=== PATIENT | male | born 1990 | race African-American/Black ===

== ENCOUNTER 2016-08-09 10:23 | Outpatient (RCR) | payer MEDICAID | END 2016-08-30 | disposition home or self-care (01) | LOC: M OUTALCOH 10:23 | PROVIDERS: ATTEND Psychiatry & Neurology Psychiatry | DX: F10.10 Alcohol abuse, uncomplicated (principal); F12.20 Cannabis dependence, uncomplicated ==

== ENCOUNTER 2017-08-14 08:55 | Emergency (ER) | payer OTHER, MEDICAID ==
[2017-08-14] MEDS: KETOROLAC 30 MG/ML VIAL (J1885) IM (10:37)
== END 2017-08-14 11:56 | disposition home or self-care (01) ==
LOC: M ED 08:55
DX: Z04.1 Encounter for examination and observation following transport accident (principal); S33.5XXA Sprain of ligaments of lumbar spine, initial encounter; S16.1XXA Strain of muscle, fascia and tendon at neck level, initial encounter; V43.52XA Car driver injured in collision with other type car in traffic accident, initial encounter; Y92.410 Unspecified street and highway as the place of occurrence of the external cause; J45.909 Unspecified asthma, uncomplicated; Z98.890 Other specified postprocedural states
CPT/HCPCS: J1885

== ENCOUNTER → 2018-12-17 | Outpatient (CLI) | payer OTHER ==
[~2018-12-17] MED LIST: ALB2.5NEB INH; CYCL5TAB PO
--- NOTE | 2018-12-17 11:00 | REP ---
MR LUMBAR SPINE WITHOUT CONTRAST: HISTORY: Radiculopathy. There is no disc bulge or herniation at the L1-2 through L3-4 levels. The nerves exit the neural foramina without compression. A diffuse disc bulge is present at the L4-5 level. This abuts the thecal sac. The L4 nerves exit the neural foramina without compression. A diffuse disc bulge and small central disc protrusion are present at the L5-S1 level. There is minimal compression of the thecal sac. The L5 nerves exit the neural foramina without compression. The conus medullaris is normal in appearance terminating at the level of the L1-2 intervertebral disc. Normal signal intensity is present in the lumbar intervertebral discs and vertebral bodies. IMPRESSION: 1. Diffuse disc bulge at the L4-5 level. This abuts the thecal sac. 2. Diffuse disc bulge and small central disc protrusion at the L5-S1 level with minimal thecal sac compression. Electronically Signed by Bradly Andujar MD 12/17/2018 11:03 A
--- NOTE | 2018-12-17 12:04 | REP ---
MR CERVICAL SPINE WITHOUT CONTRAST: HISTORY: Neck pain. There is no disc bulge or herniation. The spinal canal and the neural foramina are patent. The spinal cord is normal in signal intensity. Normal signal intensity is present in the cervical vertebral bodies. IMPRESSION: There is no disc bulge or herniation. Electronically Signed by Bradly Andujar MD 12/17/2018 12:05 P
--- NOTE | 2018-12-17 12:10 | REP ---
MR THORACIC SPINE WITHOUT CONTRAST: HISTORY: Back pain. A small central disc protrusion is present at the T2-3 level. There is minimal effacement of the thecal sac without spinal cord compression. The T2 neural foramina are patent. A small central disc protrusion is present at the T3-4 level. There is minimal effacement of the thecal sac without spinal cord compression. The T2 neural foramina are patent. A small right paracentral disc protrusion is present at the T4-5 level. There is minimal effacement of the thecal sac without spinal cord compression. The T4 neural foramina are patent. A small central disc protrusion is present at the T5-6 level. There is minimal effacement of the thecal sac without spinal cord compression. The T5 neural foramina are patent. A small right paracentral disc protrusion is present at the T8-9 level. There is minimal effacement of the thecal sac without spinal cord compression. The T8 neural foramina are patent. There is no other disc bulge or herniation. The remaining neural foramina are patent. The spinal cord is normal in signal intensity. Normal signal intensity is present in the thoracic vertebral bodies. IMPRESSION: Small disc protrusions at the T2-3 through T5-6 and T8-9 levels without spinal cord compression. Electronically Signed by Bradly Andujar MD 12/17/2018 12:16 P
== END ==
LOC: M RAD 08:52
PROVIDERS: ATTEND Family Medicine
DX: M54.2 Cervicalgia (principal); M51.26 Other intervertebral disc displacement, lumbar region; M51.27 Other intervertebral disc displacement, lumbosacral region; M51.24 Other intervertebral disc displacement, thoracic region

== ENCOUNTER → 2018-12-19 | Outpatient (CLI) | payer OTHER ==
--- NOTE | 2018-12-19 16:44 | REP ---
MRI RIGHT SHOULDER: TECHNIQUE: Axial T2 fat sat, gradient echo, sagittal oblique T2 fat sat, coronal oblique T1, T2 fat sat. The supraspinatus tendon demonstrates no significant abnormal signal. There is no rotator cuff tendon tear. I do not see a significant hypertrophic change at the acromioclavicular joint. The acromion is downward sloping and type 2. The biceps tendon is within the bicipital groove with no tenosynovitis. There is no Hill Sach's deformity. The deltoid muscle demonstrates no abnormal signal. The biceps labral complex appears intact. Mild ill defined high signal is seen throughout the superior labrum. In the anterior inferior aspect of the glenohumeral joint there appears to be linear soft tissue in the joint which may represent a labral flap from a labral tear. Posterior and inferior labrum appear grossly intact. Tiny subchondral cyst is seen in the superolateral humeral head. There is no bone marrow edema or occult fracture. There is a normal amount of joint fluid. No paralabral cyst is seen. IMPRESSION: No rotator cuff tear. Downward sloping of the acromion which is type 2, possibly causing impingement on the rotator cuff tendons. Subtle ill-defined high signal involving the superior labrum which appears somewhat truncated. This may represent fraying or a tear. There is linear soft tissue in the anterior inferior glenohumeral joint which may represent a labral flap from a labral tear. Recommend MR arthrography to further evaluate. Electronically Signed by Patrick Ly MD 12/20/2018 12:35 P
== END ==
LOC: M RAD 10:04
PROVIDERS: ATTEND Orthopaedic Surgery Sports Medicine
DX: M25.511 Pain in right shoulder (principal)

== ENCOUNTER 2019-01-19 00:30 | Inpatient (IN) | payer OTHER ==
[2019-01-19] VITALS (7 sets, daily range): BP systolic 123–132; BP diastolic 68–93
[~2019-01-19] VITALS: Ht 182.9 cm; Wt 107.3 kg
[2019-01-19] MEDS ORDERED: MORPHINE 4 MG/ML 1ML VIAL/SYRINGE (J2270) IV ONE ×2 (01:00→01:15)
[2019-01-19] MEDS ORDERED: TETANUS/DIPHTHERIA TOX ADSORB ADULT 0.5ML SYR/VIAL (90714) IM ONE (01:00)
[2019-01-19] MEDS ORDERED: ceFAZolin SOD 1 GM in D5W MINI-BAG PLUS 50 ML IV ONE ×2 (01:00→07:00)
[2019-01-19] MEDS ORDERED: NS 1,000 ML IV ONE (01:00)
[2019-01-19] MEDS ORDERED: ISOVUE-370 76% 100ML VIAL (Q9967) As Ordered ONE (01:05)
[2019-01-19 01:09] LABS: HEMATOCRIT 40.8 % (42.0-52.0); HEMOGLOBIN 12.7 g/dl (13.5-17.5); MEAN CORPUSCULAR HEMOGLOBIN 23.7 pg (27.0-33.0); MEAN CORPUSCULAR HGB CONC 31.1 g/dl (32.0-36.5); MEAN CORPUSCULAR VOLUME 76.1 fl (80.0-96.0); PLATELET COUNT, AUTOMATED 345 10^3/uL (150-450); RED BLOOD COUNT 5.36 10^6/uL (4.30-6.10); WHITE BLOOD COUNT 13.5 10^3/uL (4.0-10.0)
[2019-01-19 01:35] LABS: GLUCOSE, FASTING 117 MG/DL (70-100)
[2019-01-19 01:36] LABS: BLOOD UREA NITROGEN 13 MG/DL (7-18); CALCIUM LEVEL 8.9 MG/DL (8.5-10.1); CARBON DIOXIDE LEVEL 24 MEQ/L (21-32); CHLORIDE LEVEL 106 MEQ/L (98-107); CREATININE FOR GFR 1.42 MG/DL (0.70-1.30); GLOMERULAR FILTRATION RATE > 60.0 (>60); POTASSIUM SERUM 4.4 MEQ/L (3.5-5.1); SODIUM LEVEL 140 MEQ/L (136-145)
[2019-01-19 01:40] LABS: INR 1.18; PARTIAL THROMBOPLASTIN TIME 26.2 SECONDS (25.0-38.4); PROTHROMBIN TIME 14.7 SECONDS (11.8-14.0)
[2019-01-19 01:44] LABS: BASOPHILS 1 % (0-4); EOSINOPHILS 2 % (0-5); LYMPHOCYTES 50 % (16-52); MONOCYTES 4 % (0-8); NEUTROPHILS 43 % (35-75)
[2019-01-19 01:45] LABS: MICROCYTOSIS 1+; PLATELET ESTIMATE NORMAL (NORMAL)
[2019-01-19] MEDS ORDERED: HYDROMORPHONE HCL 0.5 MG/ 0.5 ML SYRINGE (J1170 PER 1) IV ONE ×3 (02:00→07:45)
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
[2019-01-19] MEDS ORDERED: METH1TAB40 PO (03:19)
[2019-01-19] MEDS ORDERED: IBUP1TAB6 PO (03:19)
[2019-01-19] MEDS ORDERED: ALBU8.5H INH (03:19)
[2019-01-19] MEDS ORDERED: LIDOCAINE 1% MDV 20ML VIAL As Ordered ONE (04:40)
[2019-01-19] MEDS ORDERED: LIDOCAINE 1% MDV INJ 50 ML VIAL SC ONE (04:45)
[2019-01-19] MEDS ORDERED: PROPOFOL 200 MG/20 ML VIAL As Ordered ONE (07:28)
[2019-01-19] MEDS ORDERED: LIDOCAINE 2% INJ 100 MG/5 ML SDV (FOR ANES.) As Ordered ONE (07:28)
[2019-01-19] MEDS ORDERED: fentaNYL 100 MCG/2 ML INJECTION (J3010) As Ordered ONE (07:30)
[2019-01-19] MEDS ORDERED: MIDAZOLAM INJ 2 MG/2 ML VIAL (J2250) As Ordered ONE (07:30)
[2019-01-19] MEDS ORDERED: ONDANSETRON 4MG/2ML VIAL (J2405) As Ordered ONE (07:30)
[2019-01-19] MEDS ORDERED: HYDROMORPHONE HCL 0.5 MG/ 0.5 ML SYRINGE (J1170 PER 1) As Ordered ONE ×2 (07:49→07:50)
[2019-01-19] MEDS ORDERED: ROCURONIUM BROMIDE 50 MG/5 ML VIAL As Ordered ONE (08:15)
[2019-01-19] MEDS ORDERED: dexameTHASONE 4 MG/ML 1ML VIAL (J1100) As Ordered ONE (08:27)
[2019-01-19] MEDS ORDERED: KETAMINE HCL 200 MG/20 ML VIAL As Ordered ONE (08:32)
[2019-01-19] MEDS ORDERED: NEOSTIGMINE 10 MG/10 ML VIAL (J2710) As Ordered ONE (08:35)
[2019-01-19] MEDS ORDERED: GLYCOPYRROLATE INJ 0.2 MG/ML 2 ML VIAL As Ordered ONE (08:35)
[2019-01-19] MEDS ORDERED: ACETAMINOPHEN 1000MG 100ML IV BTL (OFIRMEV) (J0131 PER 10MG) As Ordered ONE (08:43)
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
--- NOTE | 2019-01-19 08:57 | REP ---
Left humerus six views: There is a spiral fracture of the midshaft with overlapping of the fracture fragments and lateral angulation at the fracture site. Mineralization is normal. There are no calcifications or foreign bodies. Electronically Signed by Patrick Zhang MD 01/19/2019 08:49 A
[2019-01-19] MEDS ORDERED: MORPHINE 10 MG/ML 1ML VIAL (J2270) As Ordered ONE (09:59)
[2019-01-19] MEDS ORDERED: ONDANSETRON 4MG/2ML VIAL (J2405) IV PRN (10:00)
[2019-01-19] MEDS ORDERED: LR 1,000 ML IV SCH (10:00)
[2019-01-19] MEDS ORDERED: fentaNYL 100 MCG/2 ML INJECTION (J3010) IV PRN (10:00)
[2019-01-19] MEDS: MORPHINE 10 MG/ML 1ML VIAL (J2270) IV PRN ×2 (10:01→10:08)
[2019-01-19] MEDS: oxyCODONE 5MG TAB PO PRN ×2 (10:14→10:43)
[2019-01-19] MEDS ORDERED: PERCOCET 5MG/325MG TAB PO PRN ×2 (10:15)
[2019-01-19] MEDS: NS 1,000 ML IV SCH ×2 (10:15→23:35)
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
[2019-01-19] MEDS: MORPHINE 4 MG/ML 1ML VIAL/SYRINGE (J2270) IV PRN (11:19)
[2019-01-19] MEDS: PERCOCET 5MG/325MG TAB PO PRN ×2 (13:38→19:51)
[2019-01-20 06:00] VITALS: BP 121/65
[2019-01-20] MEDS: PERCOCET 5MG/325MG TAB PO PRN ×3 (09:00→23:06)
[2019-01-20 10:00] VITALS: BP 136/99
--- NOTE | 2019-01-20 10:13 | REP ---
Left humerus two views: Comparison is 01/19/2019. The overlapping of the spiral fracture fragments and the angulation of the spiral fracture have been reduced. Electronically Signed by Patrick Zhang MD 01/20/2019 10:05 A
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
[2019-01-20] MEDS: NS 1,000 ML IV SCH (12:55)
[2019-01-20 14:00] VITALS: BP 123/70
[2019-01-20 18:00] VITALS: BP 136/100
[2019-01-20 22:00] VITALS: BP 128/59
[2019-01-21 05:41] VITALS: BP 115/64
[2019-01-21] MEDS ORDERED: PERC5TAB12 PO (06:02)
[2019-01-21] MEDS ORDERED: KEFL500C17 PO (06:02)
[2019-01-21] MEDS: PERCOCET 5MG/325MG TAB PO PRN ×3 (08:10→14:18)
[2019-01-21] MEDS: MORPHINE 4 MG/ML 1ML VIAL/SYRINGE (J2270) IV PRN (12:17)
[2019-01-21 15:45] VITALS: BP 125/75
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
== END 2019-01-21 16:30 | disposition home or self-care (01) | DRG 315 ==
LOC: M ED 00:30 → M SDC 03:45 → M MS5PR 11:01 → M SDC 01-20 08:29 → M MS5PR 01-20 08:30
PROC: 0PBG0ZZ Excision of Left Humeral Shaft, Open Approach (ICD-10-PCS; principal; 2019-01-19 07:07)
DX: S42.342B Displaced spiral fracture of shaft of humerus, left arm, initial encounter for open fracture (principal); J45.909 Unspecified asthma, uncomplicated; S51.812A Laceration without foreign body of left forearm, initial encounter; S61.511A Laceration without foreign body of right wrist, initial encounter; S31.119A Laceration without foreign body of abdominal wall, unspecified quadrant without penetration into peritoneal cavity, initial encounter; M54.5 Low back pain; X99.1XXA Assault by knife, initial encounter

== ENCOUNTER → 2020-11-09 | Outpatient (CLI) | payer MEDICAID ==
[~2020-11-09] MED LIST changes: +ALBU8.5H INH; +IBUP1TAB6 PO; +KEFL500C17 PO; +METH-1164 PO; +PERC5TAB12 PO
--- NOTE | 2020-11-10 10:01 | REP ---
INDICATION: PAIN. COMPARISON: 10/18/2014 TECHNIQUE: AP, lateral, tunnel and sunrise views of the left knee FINDINGS: Moderate/early advanced tricompartmental osteoarthritic degenerative changes are again noted and minimally progressive. Findings include subchondral sclerosis along the tibial plateau and posterior patella with joint space narrowing and diffuse cortical irregularities and small to moderate osteophytosis. No evidence for acute fracture or dislocation. No obvious effusion. The previously noted dystrophic calcifications in the suprapatellar bursa are not visible on current examination. IMPRESSION: Early advanced tricompartmental osteoarthritic degenerative changes mildly progressive when compared to prior examination. <Electronically signed by Ethan Akers > 11/10/20 [id number]
== END ==
LOC: M SOG 10:50
PROVIDERS: ATTEND Orthopaedic Surgery Sports Medicine
DX: M22.2X2 Patellofemoral disorders, left knee (principal); M17.12 Unilateral primary osteoarthritis, left knee

== ENCOUNTER → 2020-11-20 | Outpatient (CLI) | payer OTHER ==
--- NOTE | 2020-11-20 15:37 | REP ---
INDICATION: PATELOFEMORAL DISORDER LEFT KNEE. COMPARISON: None TECHNIQUE: 3T multiplanar MRI imaging of the left was obtained using various sequences. FINDINGS: The anterior and posterior horns of the medial meniscus are flattened and truncated but have no abnormal signal within them. The anterior and posterior horns of the lateral meniscus are truncated and flattened but have no abnormal signal within them. The anterior and posterior cruciate ligaments are intact. The quadriceps and patellar tendons are intact. The medial and lateral collateral ligaments are thinned but intact. The medial and lateral patellar retinacula are intact. There is lateral patellar subluxation and marked asymmetric patellofemoral joint space narrowing. There is heavy tricompartmental marginal osteophytosis. There is advanced thinning and irregularity of all articular cartilages. There is a joint effusion. There is no evidence of a Mendez's cyst. Subchondral patchy and multifocal T2 hyper signal is seen in the median distal femoral metaphysis anteriorly and lateral femoral condyle anteriorly. Multifocal subchondral T2 hyper signal is seen in the patella median aspect and overall lateral facet. IMPRESSION: 1. There is no evidence of acute internal derangement. Chronic meniscal changes and collateral ligamentous changes as described above. 2. Advanced degenerative changes and particularly affecting the patellofemoral joint as described above. 3. 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 4. There is a joint effusion. 5. Other findings as described above. <Electronically signed by Vamsi Meyer > 11/20/20 [id number]
== END ==
LOC: M PLARAD 13:52
PROVIDERS: ATTEND Orthopaedic Surgery Sports Medicine
DX: M94.262 Chondromalacia, left knee (principal); M17.12 Unilateral primary osteoarthritis, left knee; M25.462 Effusion, left knee; M22.2X2 Patellofemoral disorders, left knee

== ENCOUNTER → 2020-11-27 | Outpatient (CLI) | payer OTHER ==
--- NOTE | 2020-11-27 12:23 | REP ---
INDICATION: LEFT KNEE PAIN. COMPARISON: 11/09/2020. TECHNIQUE: PA standing views bilateral knees. FINDINGS: There is no fracture or dislocation. On the right there is mild medial joint space narrowing and subchondral sclerosis. On the left there is mild medial joint space narrowing and subchondral sclerosis. There is moderate spurring of the medial femoral condyle with mild spurring of both tibial plateaus. IMPRESSION: Mild bilateral degenerative changes. <Electronically signed by Patrick Ly > 11/27/20 [id number]
== END ==
LOC: M SOG 11:00
PROVIDERS: ATTEND Orthopaedic Surgery Adult Reconstructive Orthopaedic Surgery
DX: M17.12 Unilateral primary osteoarthritis, left knee (principal)

== ENCOUNTER → 2020-12-08 | Outpatient (REF) | payer OTHER ==
[2020-12-08 12:49] LABS: CHOLESTEROL LEVEL 134 MG/DL (<200); HDL CHOLESTEROL 58 MG/DL (>40); LDL CHOLESTEROL 51 MG/DL (<100); NON-HDL-C 76 MG/DL; TRIGLYCERIDES LEVEL 127 MG/DL (<150)
[2020-12-08 13:38] LABS: HEPATITIS C VIRUS ABY INDEX < 0.0 INDEX (<0.8); HIV 1&2 SCREEN CENTAUR NEGATIVE (NEGATIVE)
== END ==
LOC: M LAB REF 11:36
PROVIDERS: ATTEND Pediatrics
DX: Z13.220 Encounter for screening for lipoid disorders (principal); Z11.3 Encounter for screening for infections with a predominantly sexual mode of transmission